=== PATIENT | male | born 1955 | race Caucasian/White ===

== ENCOUNTER 2019-06-06 14:03 | Outpatient (RCR) | payer SELFPAY | END 2020-02-29 14:25 | disposition home or self-care (01) | LOC: ANHCPRIII 14:03 | PROVIDERS: PCP Family Medicine; Visit Provider Family Medicine | DX: Z95.2 Presence of prosthetic heart valve (principal) | CPT/HCPCS: 99199 ==

== ENCOUNTER 2019-07-11 13:55 | Emergency (ER) | payer OTHER, MEDICARE, SELFPAY ==
[2019-07-11 13:58] VITALS: BP 206/75; PULSE 72; RESP 16; TEMP 36.6; O2SAT 98
--- NOTE | 2019-07-11 14:15 | ED.GENADULT ---
HPI - General Adult General Chief complaint: Unspecified Stated complaint: post dental extraction bleeding Time Seen by Provider: 07/11/19 14:12 Source: patient, family and RN notes reviewed Mode of arrival: other Limitations: no limitations History of Present Illness HPI narrative: Pt is a 64 y/o Caucasain male who presents to the ED with c/o constant gum bleeding that began at 11 AM after he had his teeth extracted today. Pt had three teeth pulled. Pt's spouse states the pt is trying to get dentures so they plan on pulling out his teeth. He states that he stopped taking his Plavix two days ago. Pt denies lightheadedness and dizziness. Pt is taking Plavix and ASA 81 mg. Pt's balling head tender is Dr. Francis. complaint: Gum Bleeding Onset (ago): hour(s) (3) Quality: constant Relieving factors: none Associated symptoms: denies other symptoms Related Data Home Medications Medication Instructions Recorded Confirmed aspirin 81 mg tablet,delayed 81 mg PO DAILY 04/26/19 04/26/19 release clopidogrel 75 mg tablet 75 mg PO DAILY 04/26/19 04/26/19 metoprolol succinate 50 mg 50 mg PO DAILY 04/26/19 04/26/19 tablet,extended release 24 hr simvastatin 10 mg tablet 10 mg PO DAILY 04/26/19 04/26/19 lisinopril 20 mg PO DAILY 05/03/19 05/03/19 escitalopram oxalate 10 mg PO DAILY 07/11/19 07/11/19 levothyroxine [Tirosint] 112 mcg PO DAILY 07/11/19 07/11/19 potassium chloride 10 meq PO BID 07/11/19 07/11/19 testosterone cypionate mg 07/11/19 Allergies Allergy/AdvReac Type Severity Reaction Status Date / Time Penicillins Allergy Unknown unknown Verified 07/11/19 14:04 Review of Systems Review of Systems: All systems reviewed & are unremarkable except as noted in HPI and below ENT: Reports bleeding gums (constant, from teeth extraction) Cardiovascular: Cardiovascular: Denies lightheadedness Neurologic: Denies dizziness PMF Past Medical History Medical History (Updated 07/11/19 @ 17:04 by Arminda Aaron MD) Ankle fracture, left Aortic stenosis Atherosclerotic heart disease of [place] coronary artery with angina pectoris >4 METs BCC (basal cell carcinoma of skin) on back CAD (coronary artery disease) Cataracts, bilateral Closed left clavicular fracture Erectile dysfunction Essential hypertension Former smoker Gout History of Hodgkin's disease History of rheumatic fever Hypothyroidism Idiopathic gout Incisional hernia Left wrist fracture Lung nodule Mild single current episode of major depressive disorder Mixed hyperlipidemia Myocardial infarction 2005 Normal colonoscopy (~2019) polpys Pre-diabetes Recurrent basal cell carcinoma (BCC) following excision Surgical History Surgical History (Updated 07/11/19 @ 17:04 by Arminda Aaron MD) H/O aortic valve replacement TAVR - 2018 H/O shoulder surgery H/O tooth extraction History of coronary artery stent placement x1 2007 History of incisional hernia repair History of left hip replacement History of splenectomy History of surgical removal of skin lesion Hx of CABG x3 2004 Hx of cataract removal with insertion of prosthetic lens Hx of tonsillectomy Social History Social History (Updated 07/11/19 @ 14:33 by Brooke Lewis) Smoking packs per day: 2 Smoking cigarettes per day: 40.0 Years smoked: 10 Smoking pack-years: 20.00 Smoking status: Former smoker Tobacco type: cigarettes Second hand tobacco smoke exposure: No Smoking end date: 05/24/97 Alcohol intake: never Gender identity (if verbalized by the patient): Male Exam Const: General: no acute distress and alert Orientation/consciousness: patient oriented x3 Other: patient sitting in bed holding pavithra HENMT: Head: normocephalic and atraumatic Mouth: Yes lip normal Other: patient has bright red blood oozing from extraction sites at location Eyes: Conjunctivae: conjunctivae normal Pupils: Equal, round and reactive pupils present Neck: Neck: normal visual i
[2019-07-11 14:44] LABS: Basophils Absolute Auto 0.1 K/mm3 (0.0-0.1); Basophils Percent Auto 0.7 % (0.2-1.2); Eosinophils Absolute Auto 0.2 K/mm3 (0-0.3); Hematocrit 44.5 % (42.0-52.0); Immature Granulocyte Percent A 0.8 % (0-0.5); Lymphocytes Absolute Auto 2.41 K/mm3 (0.9-3.2); Lymphocytes Percent Auto 20.1 % (18.3-44.2); Mean Corpuscular HGB Conc 31.5 g/dl (32-36); Mean Corpuscular Hemoglobin 28.5 pg (26-34); Mean Corpuscular Volume 90.4 fl (80-100); Mean Platelet Volume 11.7 fl (7.4-10.4); Monocytes Absolute Auto 1.3 K/mm3 (0.1-0.6); Monocytes Percent Auto 11.1 % (2.6-8.5); Neutrophils Absolute Auto 7.9 K/mm3 (1.3-6.7); Neutrophils Percent Auto 65.3 % (45.5-73.1); Platelet Count Result 282 k/mm3 (150-375); Red Blood Count 4.92 M/mm3 (4.6-6.20); Red Cell Distribution Width 19.6 % (11.5-14.5)
[2019-07-11 14:55] LABS: Blood Urea Nitrogen 14 mg/dL (9-20); Calcium 8.8 mg/dL (8.4-10.2); Carbon Dioxide 26 mmol/L (22-30); Chloride 100 mmol/L (98-107); Estimated CRCL calculation 43 ml/min; Estimated Glomerular Filt Rate > 60; Glucose 122 mg/dL (75-110); Potassium 4.7 mmol/L (3.4-5.0); Sodium 137 mmol/L (137-145)
[2019-07-11 15:06] LABS: Prothrombin Time 13.2 Seconds (11.1-14.7)
[2019-07-11 15:07] LABS: Partial Thromboplastin Time 28.4 SECONDS (22.3-36.8)
[2019-07-11 15:33] LABS: Hypochromasia 1+ (NORMAL); Macrocytosis 1+ (NORMAL); Ovalocytes 1+ (NORMAL); Platelet Estimate Adequate (Adequate)
[2019-07-11 16:13] VITALS: BP 176/83; PULSE 65; RESP 18; O2SAT 96
--- NOTE | 2019-07-11 16:14 | PC.NURSE ---
PT ASKING ABOUT PAIN MEDICATION, ERP INFORMED.
[2019-07-11] MEDS: ONDANSETRON INJ 4 MG/2 ML VIAL IV PUSH (16:22)
[2019-07-11] MEDS: MORPHINE SULFATE 4 MG/ML INJ IV PUSH (16:22)
[2019-07-11 17:17] VITALS: BP 145/59; PULSE 63; RESP 16; O2SAT 100
== END 2019-07-11 17:23 | disposition home or self-care (01) ==
PROVIDERS: Emergency Provider General Practice; PCP Family Medicine
DX: K91.840 Postprocedural hemorrhage of a digestive system organ or structure following a digestive system procedure (principal); I25.119 Atherosclerotic heart disease of native coronary artery with unspecified angina pectoris; Z95.1 Presence of aortocoronary bypass graft; Z85.828 Personal history of other malignant neoplasm of skin; I10 Essential (primary) hypertension; Z87.891 Personal history of nicotine dependence; M10.9 Gout, unspecified; Z85.71 Personal history of Hodgkin lymphoma; E03.9 Hypothyroidism, unspecified; E78.2 Mixed hyperlipidemia; I25.2 Old myocardial infarction; R73.03 Prediabetes; Z98.42 Cataract extraction status, left eye; Z98.41 Cataract extraction status, right eye; Z96.1 Presence of intraocular lens; Z90.81 Acquired absence of spleen; Z96.642 Presence of left artificial hip joint; Z79.02 Long term (current) use of antithrombotics/antiplatelets; Z79.82 Long term (current) use of aspirin
CPT/HCPCS: 12011; 36415; 80048; 85025; 85610; 85730; 96374; 96375; 99284; J2270; J2405

== ENCOUNTER 2020-01-21 18:00 | Emergency (ER) | payer OTHER, MEDICARE, SELFPAY ==
--- NOTE | ~2020-01-21 | XR_ITS ---
XR foot LT min 3V 01/21/2020 18:43 Indication: Left foot pain Procedure: 4 views left foot Comparison: 09/28/2018 Findings: Mild osteoarthritis of the left first MTP joint subtle hallux valgus. Lisfranc joint intact . No fracture or traumatic malalignment. No focal soft tissue abnormality. No radiopaque foreign bodi es. Impression: 1: No acute bone or joint abnormality. Reviewed, dictated and finalized at location A. Impression: 1: No acute bone or joint abnormality.
[2020-01-21 18:06] VITALS: BP 159/86; PULSE 64; RESP 18; TEMP 36.7; O2SAT 98
--- NOTE | 2020-01-21 19:30 | ED.LOWEXIN ---
HPI - Extremity Injury (Lower) General Chief Complaint: Extremity Injury, Lower Stated Complaint: L FOOT INJURY Time Seen by Provider: 01/21/20 18:15 Source: patient and family Mode of arrival: ambulatory Limitations: no limitations History of Present Illness HPI Narrative: 64-year-old with a history of hypertension, status post valve replacement on Plavix here with complaints of left foot and ankle pain started few hours ago. Patient states that he was coming down the stairs felt a pop in his ankle area. He denies any other injuries or other complaints at this time. MD complaint: ankle injury Type of Injury: unknown Place: home Severity: moderate Severity scale (1-10): 6 Relieving factors: nothing Exacerbating factors: weight bearing Context: walking Associated symptoms: snap/pop sensation Other symptoms: none Related Data Home Medications Medication Instructions Recorded Confirmed aspirin 81 mg tablet,delayed 81 mg PO DAILY 04/26/19 04/26/19 release clopidogrel 75 mg tablet 75 mg PO DAILY 04/26/19 04/26/19 metoprolol succinate 50 mg 50 mg PO DAILY 04/26/19 04/26/19 tablet,extended release 24 hr simvastatin 10 mg tablet 10 mg PO DAILY 04/26/19 04/26/19 lisinopril 20 mg PO DAILY 05/03/19 05/03/19 testosterone cypionate mg 07/11/19 Allergies Allergy/AdvReac Type Severity Reaction Status Date / Time Penicillins Allergy Unknown unknown Verified 01/21/20 19:05 Review of Systems Review of Systems: All systems reviewed & are unremarkable except as noted in HPI and below ROS unobtainable: Yes unobtainable due to medical condition Constitutional: Constitutional: Reports no additional constitutional complaints ENT: Reports as per HPI Cardiovascular: Cardiovascular: Reports no additional cardiovascular complaints Respiratory: Respiratory: Reports no additional respiratory complaints Gastrointestinal: Gastrointestinal: Reports no additional gastrointestinal complaints Musculoskeletal: Musculoskeletal: Reports no additional musculoskeletal complaints FOR[facility]LY [facility], [facility] Past Medical History Medical History Ankle fracture, left Aortic stenosis Atherosclerotic heart disease of [place] coronary artery with angina pectoris >4 METs BCC (basal cell carcinoma of skin) on back CAD (coronary artery disease) Cataracts, bilateral Closed left clavicular fracture Erectile dysfunction Essential hypertension Former smoker Gout History of Hodgkin's disease History of rheumatic fever Hypothyroidism Idiopathic gout Incisional hernia Insomnia Left wrist fracture Lung nodule Mild single current episode of major depressive disorder Mixed hyperlipidemia Myocardial infarction 2005 Normal colonoscopy (~2019) polpys Pre-diabetes Recurrent basal cell carcinoma (BCC) following excision Surgical History Surgical History H/O aortic valve replacement TAVR - 2018 H/O shoulder surgery H/O tooth extraction History of coronary artery stent placement x1 2007 History of incisional hernia repair History of left hip replacement History of splenectomy History of surgical removal of skin lesion Hx of CABG x3 2005 Hx of cataract removal with insertion of prosthetic lens Hx of tonsillectomy Family History Family History Sibling Family history of malignant neoplasm Family history of primary malignant neoplasm of liver, Onset Age: 55 Father Acute myocardial infarction, Onset Age: 50 Family history of coronary artery disease, Onset Age: 50 Other Family history of cardiovascular disease Hypertension Social History Social History (Reviewed 11/17/19 @ 10:17 by Geena Holloway [facility]) Smoking packs per day: 2 Smoking cigarettes per day: 40.0 Years smoked: 10 Smoking pack-years: 20.00 Smoking status: Former smoker Tobacco type: cigaret
== END 2020-01-21 19:54 | disposition home or self-care (01) ==
PROVIDERS: Emergency Provider Family Medicine; PCP Family Medicine
DX: S93.402A Sprain of unspecified ligament of left ankle, initial encounter (principal); I10 Essential (primary) hypertension; Z95.2 Presence of prosthetic heart valve; Z79.02 Long term (current) use of antithrombotics/antiplatelets; Z79.82 Long term (current) use of aspirin; I25.10 Atherosclerotic heart disease of native coronary artery without angina pectoris; I35.0 Nonrheumatic aortic (valve) stenosis; Z87.891 Personal history of nicotine dependence; E03.9 Hypothyroidism, unspecified; Z85.71 Personal history of Hodgkin lymphoma; M10.00 Idiopathic gout, unspecified site; E78.5 Hyperlipidemia, unspecified; I25.2 Old myocardial infarction; Z85.828 Personal history of other malignant neoplasm of skin; R73.03 Prediabetes; N52.9 Male erectile dysfunction, unspecified; Z95.5 Presence of coronary angioplasty implant and graft; Z96.642 Presence of left artificial hip joint; Z95.1 Presence of aortocoronary bypass graft; Z98.42 Cataract extraction status, left eye; Z98.41 Cataract extraction status, right eye; Z96.1 Presence of intraocular lens; X50.9XXA Other and unspecified overexertion or strenuous movements or postures, initial encounter
CPT/HCPCS: 73630; 99283

== ENCOUNTER → 2020-02-07 15:45 | Outpatient (CLI) | payer OTHER, MEDICARE, SELFPAY ==
--- NOTE | ~2020-02-07 | MR_ITS ---
EXAMINATION: MR foot LT wo con DATE: 02/07/2020 16:23 INDICATION: Left foot pain. TECHNIQUE: Magnetic resonance imaging (MRI) of the left foot was performed without intravenous contra st. Sequences included sagittal PD-weighted FS FSE, sagittal PD-weighted FSE, coronal PD-weighted FS FSE, coronal PD-weighted FSE, axial PD-weighted FS FSE, and axial PD-weighted FSE. COMPARISON: Left knee radiographs 01/31/2020 FINDINGS: Medial ankle ligaments: There are changes of the superficial and deep components of the deltoid ligament characterized by inc reased signal intensity and indistinct fibers. Lateral ankle ligaments: There are changes of prior sprains of anterior talofibular ligament and calcaneofibular ligament cont rast by thickening and increased signal intensity. Posterior talofibular ligament is intact. The ante rior and posterior tibiofibular ligaments are intact. Tendons: There is a partial tear of posterior tibial tendon. There is a small partial tear of Achilles tendon at its distal insertion. The anterior ankle tendons are normal. There is a longitudinal split tear of peroneus brevis tendon. There is a complete tear of peroneus longus tendon at the plantar aspect of the foot. Plantar fascia: Normal. There is an enthesophyte at the calcaneal attachment. Bones/other: Bone alignment is normal. No fracture. The talar dome is normal. Fluid: There is subcutaneous edema at the ankle, lateral worse than medial. IMPRESSION: 1. Complete tear of peroneus longus tendon at the plantar aspect of the foot. Longitudinal split tear of peroneus brevis tendon. 2. Partial tear of posterior tibial tendon. 3. Changes of medial and lateral ankle sprains. Reviewed, dictated and finalized at location A. IMPRESSION: 1. Complete tear of peroneus longus tendon at the plantar aspect of the foot. L ongitudinal split tear of peroneus brevis tendon. 2. Partial tear of posterior tibial tendon. 3. Changes of medial and lateral ankle sprains.
== END ==
PROVIDERS: Visit Provider Orthopaedic Surgery
DX: S96.812A Strain of other specified muscles and tendons at ankle and foot level, left foot, initial encounter (principal); X58.XXXA Exposure to other specified factors, initial encounter
CPT/HCPCS: 73718

== ENCOUNTER 2020-04-09 08:27 | Outpatient (CLI) | payer OTHER, MEDICARE, SELFPAY ==
--- NOTE | ~2020-04-09 | CT_ITS ---
EXAMINATION: CT chest wo con EXAM DATE: 04/09/2020 08:43 INDICATION: R91.1 - Solitary pulmonary nodule. TECHNIQUE: Spiral CT of the chest without contrast. Axial, coronal and sagittal images were reviewe d. Coronal maximum intensity pixel images of chest reviewed. The dose-length product (DLP) for this examination was 418.32 mGy-cm. The exposure was tailored according to patient size (auto mA exposur e control), and iterative reconstruction (ASIR) was used as additional dose reduction technique. Comp arison is made to prior examination from 08/23/2018. FINDINGS: There are sternotomy wires. Aortic valve replacement. There is biapical scarring. There is an 8 mm left lower lobe nodule unchanged, a noncalcified granuloma. There are no pleural or pericar dial effusions. Tracheobronchial tree is patent. There is no mediastinal, hilar or axillary lymph adenopathy. There is no pneumothorax. Heart normal in size. Upper abdomen is unremarkable. Th ere is mild to moderate thoracic spondylosis without osteoblastic or osteolytic lesions identified. IMPRESSION: Postinfectious residua. Reviewed, dictated and finalized at location A. OR HIGH MATH TEACHER IMPRESSION: Postinfectious residua.
== END 2020-04-09 08:28 | disposition home or self-care (01) ==
PROVIDERS: PCP Family Medicine; Visit Provider Family Medicine
DX: R06.00 Dyspnea, unspecified (principal); R91.1 Solitary pulmonary nodule
CPT/HCPCS: 71250

== ENCOUNTER 2021-04-22 14:53 | Outpatient (CLI) | payer BC, MEDICARE, SELFPAY ==
--- NOTE | ~2021-04-22 | XR_ITS ---
EXAMINATION: XR chest 2V 04/22/2021 15:06 INDICATION: Cough PROCEDURE: PA and lateral views of the chest COMPARISON: 04/05/2018 FINDINGS: The lungs are clear. The cardiomediastinal silhouette is within normal limits. There are no pleural effusions. There is no pneumothorax suspected. Status post median sternotomy for CABG. T here are bilateral shoulder arthroplasties. There is a prosthetic aortic valve. IMPRESSION: 1: NO ACUTE CARDIOPULMONARY DISEASE. Reviewed, dictated and finalized at location B. WAY RADIO INSTALLER
== END 2021-04-22 14:54 | disposition home or self-care (01) ==
PROVIDERS: PCP Family Medicine; Visit Provider Family Medicine
DX: R05.9 Cough, unspecified (principal)
CPT/HCPCS: 71046

== ENCOUNTER 2021-11-01 16:53 | Emergency (ER) | payer BC, MEDICARE, SELFPAY ==
[2021-11-01 16:55] VITALS: BP 199/67; PULSE 71; RESP 16; TEMP 37.1; O2SAT 95
--- NOTE | 2021-11-01 17:44 | ED.GENADULT ---
HPI - General Adult General Chief complaint: Wound/Laceration Stated complaint: peeled nail off finger Time Seen by Provider: 11/01/21 17:38 History of Present Illness HPI narrative: Patient is a 66-year-old male here for evaluation of right fifth digit pain since yesterday. Patient states that he was working when he accidentally rammed his finger and the fingernail bent back. Since then he has experienced lots of pain in his digit under the nail that is bent backwards, unrelieved by ibuprofen or Tylenol. He is able to move the digit without difficulty and has no numbness throughout his hand Denies lacerations in the incident. Related Data Home Medications Medication Instructions Recorded Confirmed aspirin 81 mg tablet,delayed 81 mg PO DAILY 04/26/19 08/06/21 release (Adult Low Dose Aspirin) clopidogrel 75 mg tablet (Plavix) 75 mg PO DAILY 04/26/19 08/06/21 lisinopril 20 mg tablet 20 mg PO DAILY 05/03/19 08/06/21 testosterone cypionate 200 mg/mL 50 mg IM WEEKLY 08/06/21 08/06/21 intramuscular oil Allergies Allergy/AdvReac Type Severity Reaction Status Date / Time Penicillins Allergy Unknown rash Verified 11/01/21 17:26 Review of Systems Review of Systems: Gen.: Denies fevers or chills Eyes: Denies eye pain or visual change ENT: Denies congestion Respiratory: Denies shortness of breath or cough CV: Denies chest pain or palpitations GI: Denies abdominal pain nausea, emesis or diarrhea denies burning, urgency, frequency or hematuria Musculoskeletal: Denies back pain or muscle pain Neuro: Denies numbness, tingling, weakness or focal weakness Skin: Reports right fifth nail injury Except as documented, all other systems reviewed and negative COUNTS INCLUDE 234 BEDS AT THE [facility] Past Medical History Medical History Ankle fracture, left Anxiety Aortic stenosis Atherosclerotic heart disease of [place] coronary artery with angina pectoris >4 METs BCC (basal cell carcinoma of skin) on back BMI 40.0-44.9, adult CAD (coronary artery disease) Cataracts, bilateral Closed left clavicular fracture Erectile dysfunction Essential hypertension Former smoker Gout History of Hodgkin's disease History of rheumatic fever Hypogonadism in male Hypothyroidism Idiopathic gout Incisional hernia Insomnia Left wrist fracture Lung nodule Mild single current episode of major depressive disorder Mixed hyperlipidemia Myocardial infarction 2005 Normal colonoscopy (~2019) polpys Peroneal tendonitis of left lower extremity Pre-diabetes Recurrent basal cell carcinoma (BCC) following excision Rupture of peroneal tendon of left foot Seasonal allergies Vision abnormalities Surgical History Surgical History H/O aortic valve replacement TAVR - 2018 H/O shoulder surgery H/O tooth extraction History of coronary artery stent placement x1 2007 History of incisional hernia repair History of left hip replacement History of splenectomy History of surgical removal of skin lesion History of total left knee replacement Hx of CABG x3 2005 Hx of cataract removal with insertion of prosthetic lens Hx of tonsillectomy Family History Family History Sibling Family history of malignant neoplasm Family history of primary malignant neoplasm of liver, Onset Age: 55 Father Acute myocardial infarction, Onset Age: 50 Family history of coronary artery disease, Onset Age: 50 Other Family history of cardiovascular disease Heart disease Hypertension Social History Social History (Updated 08/06/21 @ 14:31 by Geena Holloway [facility]) Smoking packs per day: 2 Smoking cigarettes per day: 40.0 Years smoked: 10 Smoking pack-years: 20.00 Tobacco type: cigarettes Second hand tobacco smoke exposure: No Smoking end date: 05/24/99 Alcohol intake: nev
[2021-11-01 18:16] VITALS: BP 152/87
== END 2021-11-01 18:17 | disposition home or self-care (01) ==
PROVIDERS: Emergency Provider Emergency Medicine; PCP Family Medicine
DX: S69.91XA Unspecified injury of right wrist, hand and finger(s), initial encounter (principal); M79.644 Pain in right finger(s); I35.0 Nonrheumatic aortic (valve) stenosis; I25.119 Atherosclerotic heart disease of native coronary artery with unspecified angina pectoris; I10 Essential (primary) hypertension; I25.2 Old myocardial infarction; E78.2 Mixed hyperlipidemia; E03.9 Hypothyroidism, unspecified; M10.00 Idiopathic gout, unspecified site; R73.03 Prediabetes; F32.9 Major depressive disorder, single episode, unspecified; F41.9 Anxiety disorder, unspecified; Z85.828 Personal history of other malignant neoplasm of skin; Z95.2 Presence of prosthetic heart valve; Z95.5 Presence of coronary angioplasty implant and graft; Z96.652 Presence of left artificial knee joint; Z96.642 Presence of left artificial hip joint; Z90.81 Acquired absence of spleen; Z95.1 Presence of aortocoronary bypass graft; Z98.49 Cataract extraction status, unspecified eye; Z96.1 Presence of intraocular lens; Z87.891 Personal history of nicotine dependence; Z79.02 Long term (current) use of antithrombotics/antiplatelets; Z79.82 Long term (current) use of aspirin; W22.8XXA Striking against or struck by other objects, initial encounter
CPT/HCPCS: 64450; 64455; 99282

== ENCOUNTER 2023-04-01 10:14 | Outpatient (CLI) | payer BC, MEDICARE, SELFPAY ==
--- NOTE | ~2023-04-01 | XR_ITS ---
EXAMINATION: XR scanogram DATE: 04/01/2023 11:01 INDICATION: Limb length discrepancy. TECHNIQUE: An anteroposterior view of the pelvis and lower limbs standing was obtained. COMPARISON: None. FINDINGS: Left iliac crest is 2.0 cm higher than the right. There is lumbar dextroscoliosis and moder ate spondylosis. There is a total left hip arthroplasty in near-anatomic alignment. There is a total left knee arthroplasty in near-anatomic alignment. No periprosthetic lucency to suggest loosening or infection. There is moderate right knee osteoarthritis. IMPRESSION: 1. Left iliac crest is 2.2 cm higher than the right. 2. Total left hip arthroplasty in near-anatomic alignment. 3. Total left knee arthroplasty in near-anatomic alignment. 4. Moderate right knee osteoarthritis. Reviewed, dictated and finalized at location E. OR USER EXPERIENCE ARCHITECT
== END 2023-04-01 10:15 | disposition home or self-care (01) ==
LOC: ANHIMG 10:27
PROVIDERS: PCP Family Medicine; Visit Provider Podiatrist Foot & Ankle Surgery
DX: M21.70 Unequal limb length (acquired), unspecified site (principal); M17.11 Unilateral primary osteoarthritis, right knee
CPT/HCPCS: 77073

== ENCOUNTER 2023-08-05 06:58 | Outpatient (CLI) | payer BC, MEDICARE, SELFPAY ==
--- NOTE | ~2023-08-05 | XR_ITS ---
Clinical Indication: Dyspnea PA and lateral views of the chest: Comparison: 04/22/2021 Findings: There is hazy bibasilar airspace disease. Probable minimal pleural effusions. Cardiomedias tinal silhouette is stable, status post aortic valve replacement and possible CABG. Bones and soft ti ssues are unremarkable. Impression: Probable mild bibasilar pulmonary edema with minimal pleural effusions. Reviewed, dictated and finalized at location M. Impression: Probable mild bibasilar pulmonary edema with minimal pleural effusions.
== END 2023-08-05 06:59 | disposition home or self-care (01) ==
PROVIDERS: PCP Family Medicine; Visit Provider Family Medicine
DX: R06.00 Dyspnea, unspecified (principal); J90 Pleural effusion, not elsewhere classified
CPT/HCPCS: 71046

== ENCOUNTER 2024-01-30 20:25 | Emergency (ER) | payer BC, MEDICARE, SELFPAY ==
--- NOTE | ~2024-01-30 | CT_ITS ---
Noncontrast CT scan of the cervical spine Technique: Multiple contiguous axial [address] images of the cervical spine were obtained and rec onstructed in 2D sagittal and coronal planes on the acquisition scanner. Dose reduction technique was used on this scan by utilizing automated exposure control, adjustment of the mA and/or kV according to patient size. The dose-length product (DLP) was 412.01 mGy-cm. Clinical History: Pain Findings: No fractures or dislocations. There is advanced degenerative disc narrowing at C5-C6 and C 6-C7, with uncovertebral degenerative change at these levels. There is moderate facet arthropathy sca ttered throughout the cervical spine. There is probable bilateral neural foraminal narrowing at C5-C6 . There is mild disc ossify complex at C6-C7. No prevertebral soft tissue swelling. There is nonspeci fic ground glass opacity seen in the visualized lung apices. Impression: No fracture or subluxation of the cervical spine. Degenerative spondylosis, as above. Nonspecific groundglass opacity seen in the visualized lung apices. Consider pulmonary edema or possi bartolo infection. Reviewed, dictated and finalized at [facility]. Impression: No fracture or subluxation of the cervical spine. Degenerative spondylosis, as above. Nonspecific groundglass opacity seen in the visualized lung apices. Consider pu lmonary edema or possibly infection.
[2024-01-30 20:28] VITALS: BP 134/52; PULSE 56; RESP 18; TEMP 36.2; O2SAT 96
[2024-01-30 21:49] VITALS: BP 148/60; PULSE 57; TEMP 36.4; O2SAT 96
--- NOTE | 2024-01-30 21:54 | ED.NECK ---
HPI - Neck Pain/Injury General Chief Complaint: Neck Pain/Injury Stated Complaint: neck pain Time Seen by Provider: 01/30/24 20:42 Source: patient Mode of arrival: ambulatory Limitations: no limitations History of Present Illness HPI Narrative: Patient is 68-year-old male who presents to the ED with report right-sided neck pain. Patient reports pain has been ongoing since Wednesday. He is unsure if he slept wrong. Denies any known injury. Pain worse with movement of his neck. Denies radiation into head, chest, arms. Denies numbness or tingling. Has been taking ibuprofen without much improvement. Related Data Home Medications Medication Instructions Recorded Confirmed aspirin 81 mg tablet,delayed 81 mg PO DAILY 04/26/19 08/30/23 release (Adult Low Dose Aspirin) clopidogrel 75 mg tablet (Plavix) 75 mg PO DAILY 04/26/19 08/30/23 lisinopril 20 mg tablet 20 mg PO DAILY 05/03/19 08/30/23 testosterone cypionate 200 mg/mL 50 mg IM WEEKLY 08/06/21 08/30/23 intramuscular oil Allergies Allergy/AdvReac Type Severity Reaction Status Date / Time Penicillins Allergy Unknown rash Verified 01/30/24 20:30 Review of Systems Review of Systems: All systems reviewed & are unremarkable except as noted in HPI. All systems reviewed & are unremarkable except as noted in HPI and below PMFSH Past Medical History Medical History Ankle fracture, left Anxiety Aortic stenosis Atherosclerotic heart disease of [place] coronary artery with angina pectoris >4 METs BCC (basal cell carcinoma of skin) on back BMI 40.0-44.9, adult CAD (coronary artery disease) Carcinoma of left male breast Cataracts, bilateral Closed left clavicular fracture Diabetes mellitus Erectile dysfunction Essential hypertension Former smoker Gout History of Hodgkin's disease History of rheumatic fever Hypogonadism in male Hypothyroidism Idiopathic gout Incisional hernia Insomnia Left wrist fracture Lung nodule Mild single current episode of major depressive disorder Mixed hyperlipidemia Myocardial infarction 2004 Normal colonoscopy (~2019) polpys Peroneal tendonitis of left lower extremity Pre-diabetes Recurrent basal cell carcinoma (BCC) following excision Rupture of peroneal tendon of left foot Seasonal allergies Vision abnormalities Surgical History Surgical History H/O aortic valve replacement TAVR - 2018 H/O shoulder surgery H/O tooth extraction History of coronary artery stent placement x1 2007 History of incisional hernia repair History of left hip replacement History of splenectomy History of surgical removal of skin lesion History of total left knee replacement Hx of CABG x3 2005 Hx of cataract removal with insertion of prosthetic lens Hx of tonsillectomy Family History Family History Sibling Family history of malignant neoplasm Family history of primary malignant neoplasm of liver, Onset Age: 55 Father Acute myocardial infarction, Onset Age: 50 Family history of coronary artery disease, Onset Age: 50 Other Family history of cardiovascular disease Heart disease Hypertension Social History Social History Smoking packs per day: 2 Smoking cigarettes per day: 40.0 Years smoked: 10 Smoking pack-years: 20.00 Smoking status: Former smoker Tobacco type: cigarettes Second hand tobacco smoke exposure: No Smoking end date: 05/24/99 Alcohol intake: never Substance use: never Substance use type: does not use Lack of Transportation: No Lack of Food: Never True Current Housing: I Have Housing Concerned About Future Housing: No Difficulty Paying Gas/Electric Bills: No Difficulty Paying for Meds: No Currently Unemployed: No
[2024-01-30] MEDS: methocarbamoL 500 MG TABLET 1000 MG PO (21:55)
[2024-01-30] MEDS: ACETAMINOPHEN 500 MG TABLET 1000 MG PO (21:55)
[2024-01-30] MEDS: methylPREDNISolone SOD SUCC 125 MG VIAL IM (21:56)
--- NOTE | 2024-01-30 23:35 | PC.NURSE ---
Assumed care of pt after receiving report from RILEY Ag @ [id number]
== END 2024-01-31 00:20 | disposition home or self-care (01) ==
PROVIDERS: Emergency Provider Physician Assistant; PCP Family Medicine
DX: S16.1XXA Strain of muscle, fascia and tendon at neck level, initial encounter (principal); F41.9 Anxiety disorder, unspecified; I25.10 Atherosclerotic heart disease of native coronary artery without angina pectoris; Z85.3 Personal history of malignant neoplasm of breast; E11.9 Type 2 diabetes mellitus without complications; E03.9 Hypothyroidism, unspecified; I25.2 Old myocardial infarction; X58.XXXA Exposure to other specified factors, initial encounter
CPT/HCPCS: 72125; 96372; 99284; A9270; J2919